=== PATIENT | female | born 1990 | race American Indian/Alaskan Native ===

== ENCOUNTER 2017-06-09 17:14 | Emergency (ER) | payer MEDICARE ==
[2017-06-09 18:33] VITALS: BP 130/68
== END 2017-06-10 03:41 | disposition left against medical advice (07) ==
LOC: ED 17:14
DX: M25.511 Pain in right shoulder (principal); Z53.21 Procedure and treatment not carried out due to patient leaving prior to being seen by health care provider
CPT/HCPCS: 36415; 84703